=== PATIENT | male | born 1955 | race Caucasian/White ===

== ENCOUNTER → 2017-02-02 | Day surgery (SDC) | payer BC | LOC: MSO 07:12 | DX: Z12.11 Encounter for screening for malignant neoplasm of colon (principal); K57.30 Diverticulosis of large intestine without perforation or abscess without bleeding; Z86.010 Personal history of colon polyps; G47.33 Obstructive sleep apnea (adult) (pediatric); I10 Essential (primary) hypertension | CPT/HCPCS: 00810; J7120 ==

== ENCOUNTER → 2019-12-13 | Outpatient (CLI) | payer BC | LOC: RAD 07:13 | DX: M75.121 Complete rotator cuff tear or rupture of right shoulder, not specified as traumatic (principal); M89.311 Hypertrophy of bone, right shoulder ==

== ENCOUNTER → 2021-10-25 | Outpatient (CLI) | payer MEDICARE, BC ==
[~2021-10-25] MED LIST: CEPHALEXIN500 M2 PO
== END ==
LOC: RAD 10-24 08:00
DX: K82.9 Disease of gallbladder, unspecified (principal)

== ENCOUNTER → 2021-12-11 | Day surgery (SDC) | payer MEDICARE, BC | END | disposition home or self-care (01) | LOC: MSO 08:52 | DX: H26.9 Unspecified cataract (principal) | CPT/HCPCS: 00142; J0171; J2250; J3010; V2632 ==

== ENCOUNTER → 2022-01-06 | Outpatient (CLI) | payer MEDICARE, BC | LOC: RAD 15:04 | DX: R10.9 Unspecified abdominal pain (principal); N28.89 Other specified disorders of kidney and ureter ==

== ENCOUNTER → 2022-01-15 | Day surgery (SDC) | payer MEDICARE, BC | END | disposition home or self-care (01) | LOC: MSO 08:05 | DX: H26.9 Unspecified cataract (principal) | CPT/HCPCS: 00142; J0171; J2250; V2632 ==

== ENCOUNTER → 2022-01-17 | Outpatient (CLI) | payer MEDICARE, BC | LOC: RAD 09:29 | DX: N28.1 Cyst of kidney, acquired (principal); N32.9 Bladder disorder, unspecified | CPT/HCPCS: Q9967 ==